=== PATIENT | female | born 1965 | race American Indian/Alaskan Native ===

== ENCOUNTER 2018-01-29 14:01 | Inpatient (IN) | payer MEDICAID, OTHER ==
--- NOTE | 2018-01-29 14:15 | ED PDOC ---
Arrival/HPI - General Chief Complaint: Lower Extremity Problem/Injury Time Seen by Provider: 01/29/18 14:09 Past Medical History - Infectious Disease Hx of Infectious Diseases: None - Tetanus Immunization Tetanus Immunization: Unknown - Past Medical History Past Medical History: No Previous - Cardiac Hx Cardiac Disorders: No - Pulmonary Hx Respiratory Disorders: Yes Other/Comment: Sarcodosis - Neurological Hx Neurological Disorder: No - HEENT Hx HEENT Disorder: No - Renal Hx Renal Disorder: No - Endocrine/Metabolic Hx Endocrine Disorders: No - Hematological/Oncological Hx Blood Disorders: No - Integumentary Hx Dermatological Disorder: No - Musculoskeletal/Rheumatological Hx Musculoskeletal Disorders: No - Gastrointestinal Hx Gastrointestinal Disorders: No - Genitourinary/Gynecological Hx Genitourinary Disorders: No - Psychiatric Hx Psychophysiologic Disorder: No Hx Substance Use: No - Surgical History Hx Section: Yes Other/Comment: DRAINAGE OF PLEURAL FLUID - Anesthesia Hx Anesthesia: Yes Hx Anesthesia Reactions: No Hx Malignant Hyperthermia: No - Suicidal Assessment Feels Threatened In Home Enviroment: No Family/Social History Smoking Status: Current Some Days Smoker Hx Alcohol Use: No Hx Substance Use: No Hx Substance Use Treatment: No Allergies/Home Meds Allergies/Adverse Reactions: Allergies No Known Allergies Allergy (Verified 01/29/18 14:02) Home Medications: Home Meds Medication Instructions Recorded Confirmed No Known Home Med 01/29/18 01/29/18 Physical Exam Vital Signs Temp Pulse Resp BP Pulse Ox 01/29/18 14:03 98.1 F 86 21 160/100 H 90 L Disposition/Present on Arrival - Present on Arrival History of DVT/PE: No History of Uncontrolled Diabetes: No Urinary Catheter: No History of Decub. Ulcer: No History Surgical Site Infection Following: None - Disposition
[2018-01-29] MEDS ORDERED: Albuterol-Ipratrop 3 mg / 0.5 (3 ml) UD IH STA ×3 (15:00→16:07)
--- NOTE | 2018-01-29 15:03 | ED PDOC ---
Arrival/HPI - General Chief Complaint: Lower Extremity Problem/Injury Time Seen by Provider: 01/29/18 14:09 - History of Present Illness Narrative History of Present Illness (Text): 52 year old female with a past medical history of sarcoidosis and hypertension presents with a 3 day history of right lower extremity edema starting from the thigh and shortness of breath exacerbated with walking up and down the stairs. She also reports wheezing for the past 3 days and a dry cough that started today. She reports having this SOB in the past before and given treatments for the SOB. She reports no pain, redness, or warmth from either bilateral lower extremity. She reports having welts which resolved spontaneously. She denies fever, headache, dizziness, chest pain, heart palpitations, abdominal pain, nausea, vomiting, constipation, diarrhea, dysuria, hematuria, and numbness /tingling. (Sean Zhu) Past Medical History - Provider Review Nursing Documentation Reviewed: Yes - Infectious Disease Hx of Infectious Diseases: None - Tetanus Immunization Tetanus Immunization: Unknown - Past Medical History Past Medical History: No Previous - Cardiac Hx Cardiac Disorders: No - Pulmonary Hx Respiratory Disorders: Yes Other/Comment: Sarcodosis - Neurological Hx Neurological Disorder: No - HEENT Hx HEENT Disorder: No - Renal Hx Renal Disorder: No - Endocrine/Metabolic Hx Endocrine Disorders: No - Hematological/Oncological Hx Blood Disorders: No - Integumentary Hx Dermatological Disorder: No - Musculoskeletal/Rheumatological Hx Musculoskeletal Disorders: No - Gastrointestinal Hx Gastrointestinal Disorders: No - Genitourinary/Gynecological Hx Genitourinary Disorders: No - Psychiatric Hx Psychophysiologic Disorder: No Hx Substance Use: No - Surgical History Hx Section: Yes Other/Comment: DRAINAGE OF PLEURAL FLUID - Anesthesia Hx Anesthesia: Yes Hx Anesthesia Reactions: No Hx Malignant Hyperthermia: No - Suicidal Assessment Feels Threatened In Home Enviroment: No Family/Social History - Physician Review Nursing Documentation Reviewed: Yes Family/Social History: No Known Family HX Smoking Status: Current Some Days Smoker Hx Alcohol Use: No Hx Substance Use: No Hx Substance Use Treatment: No Allergies/Home Meds Allergies/Adverse Reactions: Allergies No Known Allergies Allergy (Verified 01/29/18 14:02) Home Medications: Home Meds Medication Instructions Recorded Confirmed No Known Home Med 01/29/18 01/29/18 Review of Systems - Physician Review All systems were reviewed & negative as marked: Yes - Review of Systems Constitutional: Normal Eyes: Normal ENT: Normal Respiratory: SOB, Cough, Wheezing Cardiovascular: Normal. absent: Chest Pain, Palpitations Gastrointestinal: Normal. absent: Abdominal Pain, Constipation, Diarrhea, Nausea, Vomiting Genitourinary Female: Normal. absent: Dysuria, Frequency, Hematuria Musculoskeletal: Joint Swelling (swelling of right lower extremity) Skin: Normal, Rash (on forehead), Pruritis (minimal pruritis on for welts). absent: Skin Lesions, Laceration, Abscess Neurological: Normal Endocrine: Normal Physical Exam Vital Signs Reviewed: Yes Temperature: Afebrile Blood Pressure: Hypertensive Pulse: Regular Respiratory Rate: Tachypneic Appearance: Positive for: Well-Appearing Pain Distress: None Mental Status: Positive for: Alert and Oriented X 3 - Systems Exam Head: Present: Atraumatic, Normocephalic Pupils: Present: PERRL Extroacular Muscles: Present: EOMI Nose (External): Present: Atraumatic Neck: Present: Normal Range of Motion Respiratory/Chest: Present: Wheezes (diffuse) Cardiovascular: Present: Murmurs (audible splitting heart between ) Abdomen: Present: Normal Bowel Sounds. No: Tenderness, Distention Upper Extremity: Present: Normal Inspection, Normal ROM, NORMAL PULSES Lower Extremity: Present: Edema (+2 edema), NORMAL PULSES (pulses palpated although +2 edema in RLE), Normal ROM (generally ROM is intact even though RLE swelling is present), Capillary Refill < 2 s. No: CALF TENDERNESS, Erythema, Deformity Neurological: Present: GCS=15, CN II-XII Intact, Speech Normal, Motor Func Grossly Intact Skin: Present: Warm, Dry, Normal Color Psychiatric: Present: Alert, Oriented x 3, Normal Insight, Normal Concentration Vital Signs Temp Pulse Resp BP Pulse Ox 01/29/18 17:50 82 20 151/95 H 96 01/29/18 17:48 151/95 H 01/29/18 16:51 74 18 150/105 H 95 01/29/18 14:32 78 20 146/86 96 01/29/18 14:17 22 88 L 01/29/18 14:03 98.1 F 86 21 160/100 H 90 L Medical Decision Making ED Course and Treatment: Impression: 52 year old female with a past medical history of sarcoidosis and hypertension presents with a 3 day history of right lower extremity edema starting from the thigh and shortness of breath exacerbated with walking up and down the stairs. Assessment: Most critical differential is pulmonary embolism. Rule out congestive heart failure, pulmonary fibrosis, DVT, pneumonia, thrombophlebitis, chronic venous insufficiency, nephrotic syndrome Plan: CBC, CMP to evaluate for nephrotic syndrome. Troponins and EKG to rule out PA and arrhythmias. BNP to evaluate for heart failure. Chest X ray to rule out pneumonia, pulmonary fibrosis, CHF. CT angiography ordered due to Wells criteria score was 6. Bilateral venous lower extremity ultrasound to rule out DVT. 01/29/18 16:09 CBC, CMP, Mg and UA were unremarkable other than for Magnesium is 1.4. Patient' s magnesium will be repleted with Magnesium 400 mg. ALP is 150, bilirubin is 3.3 , and BNP is 2340. Ultrasound of bilateral lower extremities is negative for DVT. 01/29/18 16:33 Urine RBCs are 1-3, Urine WBCs are 5-10. 01/29/18 16:45 CXR: Mild pulmonary venous congestion. No focal consolidation. There is moderate cardiomegaly and prominent central vasculature. EKG: sinus tachycardia with second degree AV block type I. Rightward axis. Right ventricular conduction delay. Biphasic T waves in V2 and V3. This suggest right heart strain. 01/29/18 17:45 Chest CTA: 1. No CT evidence for acute pulmonary embolism. 2. Interval worsening of mediastinal, hilar lymphadenopathy and right paravertebral soft tissue which also likely represents lymph nodes enlargement. The differential considerations include lymphoma, metastasis and sarcoidosis. 3. Moderate cardiomegaly, large right pleural effusion, trace pericardial effusion and presumable mild alveolar pulmonary edema. Lasix 40 mg will be administered to diurese patient. Due to pleural effusion/ pericardial effusion, we will admit patient to the hospital for further evaluation and treatment. (Sean Zhu) 01/29/18 17:25 CT Chest: Creator : Chanel Wise MD COMPARISON: CT chest without contrast from 11/27/2014 FINDINGS: PULMONARY ARTERIES:There are no filling defects in the pulmonary arteries to suggest embolism. AORTA: No acute findings. No thoracic aortic aneurysm. LUNGS: There is patchy ground-glass attenuation in the lungs. There are scattered subpleural and parenchymal nodules in the right lung. The largest in the right lower lobe measures 10 mm. There is multifocal atelectasis/ scaring in the right middle lobe, lingula and both lower lobes. PLEURAL SPACES: Large right pleural effusion. No pneumothorax. No left pleural effusion. HEART: There is moderate cardiomegaly and trace pericardial effusion. LYMPH NODES: There is bulky mediastinal lymphadenopathy, the largest prevascular lymph node measures 2 point 9 cm in short axis. There is also extensive right paravertebral soft tissue which likely also represent enlarged lymph nodes. There is also bilateral hilar lymphadenopathy. These findings are worse since the prior examination. BONES, CHEST WALL:Within normal limits for the patient's age. No fracture or destructive lesion OTHER FINDINGS: There is diffuse anasarca. IMPRESSION: 1. No CT evidence for acute pulmonary embolism. 2. Interval worsening of mediastinal, hilar lymphadenopathy and right paravertebral soft tissue which also likely represents lymph nodes enlargement. The differential considerations include lymphoma, metastasis and sarcoidosis. 3. Moderate cardiomegaly, large right pleural effusion, trace pericardial effusion and presumable mild alveolar pulmonary edema. 01/29/18 18:[address] results was reviewed with patient. JONE Sono results were negative for DVT. Patient improved with one dose improved with Solumedrol IVP x1 dose and Duoneb x 2, though oxygen sat 90% on RA. Considering her Sarcoidosis and large pleural effusion and trace pericardial effusion it's important to admit patiaent for further evaluation and treatment. Case was discussed with Dr. Gutierrez who admits Dr. Derrick Emery's patients. He agreed to place patient into Telemetry for Pleural Effusion, Pericardial Effusion, r/o CHF, Sarcoidosis, Right Leg Swelling. (Pratik Gross) - Lab Interpretations Lab Results: 01/29/18 14:50 01/29/18 14:50 Lab Results 01/29/18 14:50: Magnesium 1.4 L 01/29/18 14:50: Urine Color Dark yellow, Urine Appearance Slight-cloudy, Urine pH 6.5, Ur Specific [place] 1.020, Urine Protein 100 H, Urine Glucose (UA) Negative, Urine Ketones Negative, Urine Blood Small H, Urine Nitrate Negative, Urine Bilirubin Negative, Urine Urobilinogen 4.0 H, Ur Leukocyte Esterase Trace H, Urine RBC 1 - 3, Urine WBC 5 - 10, Ur Epithelial Cells 3 - 4, Urine Bacteria Few 01/29/18 14:50: Sodium 142, Potassium 4.1, Chloride 101, Carbon Dioxide 27, Anion Gap 18, BUN 14, Creatinine 1.2, Est GFR ( Amer) 57, Est GFR (Non- Af Amer) 47, Random Glucose 123 H, Calcium 9.0, Total Bilirubin 3.3 H, AST 38 H , ALT 31, Alkaline Phosphatase 150 H, Lactate Dehydrogenase 664, Total Creatine Kinase 106, Troponin I < 0.01, NT-Pro-B Natriuret Pep 2340 H, Total Protein 7.7 , Albumin 4.1, Globulin 3.6, Albumin/Globulin Ratio 1.1 01/29/18 14:50: WBC 5.3, RBC 5.17, Hgb 14.1, Hct 43.1, MCV 83.4, MCH 27.3, MCHC 32.7, RDW 16.9 H, Plt Count 164, MPV 11.1 H, Gran % 64.0, Lymph % (Auto) 19.4 L , [place] % (Auto) 13.0 H, Eos % (Auto) 3.4, Baso % (Auto) 0.2, Gran # 3.39, Lymph # (Auto) 1.0 L, [place] # (Auto) 0.7 H, Eos # (Auto) 0.2, Baso # (Auto) 0.01 - RAD Interpretation Radiology Orders: 01/29/18 14:55 CHEST PORTABLE [RAD] Stat 01/29/18 14:56 ANGIO CHEST PE PROTOCOL [CT] Stat 01/29/18 14:57 DUPLEX LOWER EXTRM VEIN BILAT [US] Stat - Medication Orders Current Medication Orders: Discontinued Medications Albuterol/Ipratropium (Duoneb 3 Mg/0.5 Mg (3 Ml) Ud) 3 ml IH STAT STA Stop: 01/29/18 15:01 Last Admin: 01/29/18 15:11 Dose: 3 ml Albuterol/Ipratropium (Duoneb 3 Mg/0.5 Mg (3 Ml) Ud) 3 ml IH STAT STA Stop: 01/29/18 16:03 Last Admin: 01/29/18 16:50 Dose: 3 ml Albuterol/Ipratropium (Duoneb 3 Mg/0.5 Mg (3 Ml) Ud) 3 ml IH STAT STA Stop: 01/29/18 16:08 Last Admin: 01/29/18 17:28 Dose: Furosemide (Lasix) 40 mg IVP STAT STA Stop: 01/29/18 17:44 Last Admin: 01/29/18 17:48 Dose: 40 mg MAR Blood Pressure Document 01/29/18 17:48 GMD (Rec: 01/29/18 17:50 [email or web address] Blood Pressure Blood Pressure (100/60-150/90) 151/95 IVP Administration Document 01/29/18 17:48 GMD (Rec: 01/29/18 17:50 [email or web address] Charges for Administration # of IVP Administrations 1 Magnesium Oxide (Mag-Ox) 400 mg PO STAT STA Stop: 01/29/18 15:56 Last Admin: 01/29/18 17:03 Dose: 400 mg Methylprednisolone (Solu-Medrol) 125 mg IVP STAT STA Stop: 01/29/18 15:02 Last Admin: 01/29/18 15:10 Dose: 125 mg IVP Administration Document 01/29/18 15:10 GMD (Rec: 01/29/18 15:10 [email or web address] Charges for Administration # of IVP Administrations 1 Methylprednisolone (Solu-Medrol) 125 mg IVP STAT STA Stop: 01/29/18 15:38 Last Admin: 01/29/18 16:49 Dose: - PA / CMO & PRESIDENT / Resident Statement / has reviewed & agrees with the documentation as recorded. / has examined the patient and agrees with the treatment plan. Disposition/Present on Arrival - Present on Arrival Any Indicators Present on Arrival: No History of DVT/PE: No History of Uncontrolled Diabetes: No Urinary Catheter: No History of Decub. Ulcer: No History Surgical Site Infection Following: None - Disposition Have Diagnosis and Disposition been Completed?: Yes Disposition Time: 17:48 Patient Plan: Admission - Disposition Diagnosis: Pleural effusion, Pericardial effusion, Right leg swelling, Congestive heart failure, Sarcoidosis Disposition: HOSPITALIZED Patient Problems: Current Active Problems Problem Status Onset Pleural effusion Acute Condition: STABLE
[2018-01-29 15:27] LABS: BASO # 0.01 K/mm3 (0.0-2.0); BASO % 0.2 % (0.0-3.0); EOS # 0.2 (0.0-0.7); EOS % 3.4 % (1.5-5.0); GRAN # 3.39 (1.4-6.5); HEMOGLOBIN 14.1 g/dL (12.0-16.0); LYMPH % 19.4 % (22.0-35.0); MEAN CELL VOLUME 83.4 fl (80.0-105.0); MEAN CORPUSCULAR HEMOGLOBIN 27.3 pg (25.0-35.0); MEAN CORPUSCULAR HGB CONC 32.7 g/dl (31.0-37.0); MEAN PLATELET VOLUME 11.1 fl (7.0-11.0); MONO # 0.7 (0.1-0.6); RBC 5.17 10^6/uL (3.5-6.1); RED CELL DISTRIBUTION WIDTH 16.9 % (11.5-14.5); WHITE BLOOD COUNT 5.3 10^3/ul (4.5-11.0)
[2018-01-29 15:30] LABS: PH,URINE 6.5 (4.7-8.0); URINE BILIRUBIN NEGATIVE (NEGATIVE); URINE BLOOD SMALL (NEGATIVE); URINE GLUCOSE (UA) NEGATIVE (NEGATIVE); URINE LEUKOCYTE ESTERASE TRACE Leu/uL (NEGATIVE); URINE PROTEIN 100 mg/dL (<30 mg/dL)
[2018-01-29 15:31] LABS: URINE APPEARANCE SLIGHT-CLOUDY (CLEAR); URINE COLOR DARK YELLOW (YELLOW)
--- NOTE | 2018-01-29 15:33 | RAD ---
Date of service: 01/29/2018 HISTORY: r/o infiltrate COMPARISON: 11/27/2014 FINDINGS: LUNGS: The lungs are well inflated. Mild pulmonary venous congestion. No focal consolidation PLEURA: There is left pleural thickening, no pneumothorax apparent. CARDIOVASCULAR: There is moderate cardiomegaly and prominent central vasculature. OSSEOUS STRUCTURES: No significant abnormalities. VISUALIZED UPPER ABDOMEN: Normal. OTHER FINDINGS: None. IMPRESSION: No active pulmonary disease.
[2018-01-29 15:36] LABS: ALB/GLOB RATIO 1.1 (1.1-1.8); ALBUMIN 4.1 g/dL (3.0-4.8); ALT/SGPT 31 U/L (7-56); AST/SGOT 38 U/L (14-36); BLOOD UREA NITROGEN 14 mg/dL (7-21); GFR AFRICAN-AMERICAN 57; GFR NON-AFRICAN AMERICAN 47
[2018-01-29] MEDS ORDERED: Iodixanol 320 MG/ML 100 ML BOTTLE IV ONE ×2 (15:40→16:35)
[2018-01-29 15:54] LABS: B-TYPE NATRIURETIC PEPTIDE 2340 pg/mL (0-450); TROPONIN I < 0.01 ng/mL
[2018-01-29] MEDS ORDERED: Magnesium Oxide 400 mg Tab UD PO STA (15:55)
[2018-01-29 16:22] LABS: URINE BACTERIA FEW (NEG)
--- NOTE | 2018-01-29 17:23 | CT ---
Date of service: 01/29/2018 PROCEDURE: CT Chest with contrast (Pulmonary Angiogram) HISTORY: wells criteria=6 COMPARISON: CT chest without contrast from 11/27/2014 TECHNIQUE: Axial computed tomography images were obtained of the chest in the pulmonary arterial phase of enhancement. Coronal and sagittal reformatted images were created and reviewed. Intravenous contrast dose: 150 mL Visipaque 320 Radiation dose: Total exam DLP = 541.62 mGy-cm. This CT exam was performed using one or more of the following dose reduction techniques: Automated exposure control, adjustment of the mA and/or kV according to patient size, and/or use of iterative reconstruction technique. FINDINGS: PULMONARY ARTERIES: There are no filling defects in the pulmonary arteries to suggest embolism. AORTA: No acute findings. No thoracic aortic aneurysm. LUNGS: There is patchy ground-glass attenuation in the lungs. There are scattered subpleural and parenchymal nodules in the right lung. The largest in the right lower lobe measures 10 mm. There is multifocal atelectasis/ scaring in the right middle lobe, lingula and both lower lobes. PLEURAL SPACES: Large right pleural effusion. No pneumothorax. No left pleural effusion. HEART: There is moderate cardiomegaly and trace pericardial effusion. LYMPH NODES: There is bulky mediastinal lymphadenopathy, the largest prevascular lymph node measures 2 point 9 cm in short axis. There is also extensive right paravertebral soft tissue which likely also represent enlarged lymph nodes. There is also bilateral hilar lymphadenopathy. These findings are worse since the prior examination. BONES, CHEST WALL: Within normal limits for the patient's age. No fracture or destructive lesion OTHER FINDINGS: There is diffuse anasarca. IMPRESSION: 1. No CT evidence for acute pulmonary embolism. 2. Interval worsening of mediastinal, hilar lymphadenopathy and right paravertebral soft tissue which also likely represents lymph nodes enlargement. The differential considerations include lymphoma, metastasis and sarcoidosis. 3. Moderate cardiomegaly, large right pleural effusion, trace pericardial effusion and presumable mild alveolar pulmonary edema.
[2018-01-29] MEDS ORDERED: Albuterol-Ipratrop 3 mg / 0.5 (3 ml) UD IH PRN (19:29)
--- NOTE | 2018-01-29 19:32 | CP.PCM.HP ---
<Willis Sal - Last Filed: 01/29/18 20:27> History of Present Illness - History of Present Illness History of Present Illness: 52 y o female PMhx sarcoidosis presents to the ED complaining of a 3 day hx of R lower extremity edema from thigh, shortness of breath on exertion while going up and down stairs at home, and wheezing x 3 days. Pt states that her leg swelling started at home, states that she noticed the swelling while sitting on the side of her bed. Denies pain in affected area, redness, or warmth. Pt also c /o dry cough that started today. Pt also admits to "welts" that were present on the affected leg 3 days ago that went away spontaneously. Pt states she was diagnosed with sarcoidosis 3 years ago after being admitted to [facility] for L sided pleural effusion, which was drained during her admission. Denies headache, dizziness/lightheadedness, fever, chills, chest pain, n/v/d/c, urinary complaints, or other symptoms. Pt states she is usually able to ambulate at home at baseline without any issues. PMD: Dr. Fabi Melton: Dr. García PMhx: Sarcoidosis (dx 3 y ago), L sided pleural effusion 3 y ago PSurgHx: Surgical drainage of L sided pleural effusion, C/s 20 y ago Allergies: NKDA Meds: Pt states she takes a blue colored inhaler at home for sarcoidosis, unsure of medication name Fam hx: Parents and siblings alive and well - no pertinent hx Soc hx: Former smoker quit 1 month ago, denies alcohol or drug use In ED, pt received duonebs, Solu-medrol, lasix, and Magnesium oxide. Mg was 1.4 on admission, pt received Mag oxide 400 mg x1. ALP 150, Bili 3.3, BNP 2340. U/a demonstrated RBCs 1-3, WBCs 5-10, urine protein 100. CXR revealed mild pulmonary venous congestion and no focal consolidation. CT chest demonstrated no evidence of pulmonary embolism; interval worsening of mediastinal, hilar lymphadenopathy, and R paravertebral soft tissue which also likely represents lymph node enlargement (differential - lymphoma, metastasis, sarcoidosis), moderate cardiomegaly, large R pleural effusion, trace pericardial effusion, presumable mild alveolar pulmonary edema. Lower extremity doppler b/l was negative for DVT. EKG in ED demonstrated possible 2nd degree AV block. Present on Admission - Present on Admission Any Indicators Present on Admission: No Review of Systems - Constitutional Constitutional: Fatigue. absent: As Per HPI, Anorexia, Chills, Daytime Sleepiness, Excessive Sweating, Fever, Frequent Falls, Headache, Increased Appetite, Lethargy, Malaise, Night Sweats, Snoring, Sleep Apnea, Weight Gain, Weight Loss, Weakness, Other - Cardiovascular Cardiovascular: Dyspnea, Dyspnea on Exertion, Leg Edema, Pedal Edema. absent: As Per HPI, Acrocyanosis, Chest Pain, Chest Pain at Rest, Chest Pain with Activity, Claudication, Diaphoresis, Edema, Irregular Heart Rhythm, Pain Radiating to Arm/Neck/Jaw, Leg Ulcers, Lightheadedness, Orthopnea, Palpitations , Paroxysmal Nocturnal Dyspnea, Radiating Pain, Rapid Heart Rate, Slow Heart Rate, Syncope, Other - Respiratory Respiratory: Cough, Dyspnea, Dyspnea on Exertion, Wheezing. absent: As Per HPI , Hemoptysis, Snoring, Stridor, Pain on Inspiration, Chest Congestion, Excessive Mucous Production, Change in Mucous Color, Pain with Coughing, Other - Gastrointestinal Gastrointestinal: absent: As Per HPI, Abdominal Pain, Belching, Bloating, Change in Bowel Habits, Change in Stool Character, Coffee Ground Emesis, Constipation, Cramping, Diarrhea, Dyspepsia, Dysphagia, Early Satiety, Excessive Flatus, Fecal Incontinence, Heartburn, Hematemesis, Hematochezia, Loose Stools, Melena, Nausea, Odynophagia, Temesmus, Vomiting, Other Past Patient History - Infectious Disease Hx of Infectious Diseases: None - Tetanus Immunizations Tetanus Immunization: Unknown - Past Social History Smoking Status: Current Some Days Smoker - CARDIAC Hx Cardiac Disorders: No - PULMONARY Hx Respiratory Disorders: Yes Other/Comment: Sarcodosis - NEUROLOGICAL Hx Neurological Disorder: No - HEENT Hx HEENT Problems: No - RENAL Hx Chronic Kidney Disease: No - ENDOCRINE/METABOLIC Hx Endocrine Disorders: No - HEMATOLOGICAL/ONCOLOGICAL Hx Blood Disorders: No - INTEGUMENTARY Hx Dermatological Problems: No - MUSCULOSKELETAL/RHEUMATOLOGICAL Hx Musculoskeletal Disorders: No - GASTROINTESTINAL Hx Gastrointestinal Disorders: No - GENITOURINARY/GYNECOLOGICAL Hx Genitourinary Disorders: No - PSYCHIATRIC Hx Psychophysiologic Disorder: No Hx Substance Use: No - SURGICAL HISTORY Hx Section: Yes Other/Comment: DRAINAGE OF PLEURAL FLUID - ANESTHESIA Hx Anesthesia: Yes Hx Anesthesia Reactions: No Hx Malignant Hyperthermia: No Meds Allergies/Adverse Reactions: Allergies Allergy/AdvReac Type Severity Reaction Status Date / Time No Known Allergies Allergy Verified 01/29/18 18:52 Physical Exam - Constitutional Appears: Non-toxic, No Acute Distress - Head Exam Head Exam: ATRAUMATIC, NORMAL INSPECTION, NORMOCEPHALIC - Eye Exam Eye Exam: EOMI, Normal appearance, PERRL - ENT Exam ENT Exam: Mucous Membranes Moist, Normal Oropharynx - Respiratory Exam Respiratory Exam: Clear to Auscultation Bilateral, NORMAL BREATHING PATTERN - Cardiovascular Exam Cardiovascular Exam: REGULAR RHYTHM, +S1, +S2 - GI/Abdominal Exam GI & Abdominal Exam: Normal Bowel Sounds, Soft - Extremities Exam Extremities exam: Positive for: normal capillary refill, pedal edema, pedal pulses present Additional comments: R LE swelling noted, 2+ non-pitting edema - Back Exam Back exam: FULL ROM, NORMAL INSPECTION - Neurological Exam Neurological exam: Alert, CN II-XII Intact, Normal Gait, Oriented x3, Reflexes Normal - Psychiatric Exam Psychiatric exam: Normal Affect, Normal Mood - Skin Skin Exam: Dry, Intact, Normal Color, Warm Results - Vital Signs Recent Vital Signs: Last Vital Signs Temp 98.1 F 01/29/18 14:03 Pulse 82 01/29/18 17:50 Resp 20 01/29/18 17:50 BP 151/95 H 01/29/18 17:50 Pulse Ox 96 01/29/18 17:50 - Labs Result Diagrams: 01/29/18 14:50 01/29/18 14:50 Assessment & Plan - Assessment and Plan (Free Text) Assessment: 52 y o female PMhx sarcoidosis (hx L pleural effusion 3 y ago s/p surgical drainage), presents with R lower extremity edema and worsening shortness of breath on exertion. Found on CT chest to have R sided pleural effusion and worsening of mediastinal and hilar lymphadenopathy. Plan: R-sided pleural effusion -Found on Chest CT -Pt has hx L sided pleural effusion drained 3 y ago at [facility] -Pt saturating well, speaking in full sentences, no respiratory distress -Normal WBC, pt not showing signs of infection at this time -Continue to trend labs -Consider pulm, IR consults -Continue to monitor vitals Worsening shortness of breath -Likely 2/2 to R-sided pleural effusion, sarcoidosis -Duonebs q 4 h PRN -Solu-medrol 40 mg q 12 h IVP Elevated BNP -2/2 R lower extremity swelling 2/2 pleural effusion vs. sarcoidosis -Cardio consulted, recs appreciated -EKG demonstrated possible 2nd degree AV block, chronic change -Echo pending -CT chest demonstrated cardiomegaly, trace pericardial effusion -Strict I's/O's, daily weights -40 mg IV lasix daily Hx sarcoidosis Pt on inhaler at home, does not know name of it, needs pharmacy verification Pt seen, examined with, and plan discussed with Dr. Gutierrez, attending Willis Sal DO PGY-1, [employer] Pager #[phone] <Jose David Gutierrez - Last Filed: 01/30/18 07:15> Results - Vital Signs Recent Vital Signs: Last Vital Signs Temp 98.0 F 01/30/18 05:50 Pulse 60 01/30/18 05:51 Resp 20 01/30/18 05:50 BP 141/95 H 01/30/18 05:50 Pulse Ox 97 01/30/18 05:50 - Labs Result Diagrams: 01/30/18 06:00 01/29/18 14:50 Labs: Laboratory Results - last 24 hr 01/30/18 06:00 WBC 5.0 RBC 4.86 Hgb 13.3 Hct 40.8 MCV 84.0 MCH 27.4 MCHC 32.6 RDW 16.8 H Plt Count 164 MPV 10.9 Gran % 81.5 H Lymph % (Auto) 12.9 L Cloud % (Auto) 5.6 Eos % (Auto) 0.0 L Baso % (Auto) 0.0 Gran # 4.09 Lymph # (Auto) 0.7 L Cloud # (Auto) 0.3 Eos # (Auto) 0.0 Baso # (Auto) 0.00 Attending/Attestation - Attestation I have personally seen and examined this patient.: Yes I have fully participated in the care of the patient.: Yes I have reviewed all pertinent clinical information: Yes Notes (Text): 01/29/18 52 year old female with past medical history of sarcoidosis who presented with shortness of breath and right lower extremity edema. CT chest showed large right pleural effusion and worsening of mediastinal and hilar lymphadenopathy. PNBP was also elevated. Will request cardiology and pulmonary evaluation. Continue with iv lasix, steroids and duonebs. Echocardiogram ordered. Jose David Gutierrez MD Hospitalist.
[2018-01-29] MEDS ORDERED: Magnesium 2 gm/50 ml NS 2 GM/50 ML BAG IVPB ONE (19:57)
[2018-01-29 20:11] VITALS: BMI 34.7
[2018-01-29] MEDS ORDERED: Pneumococcal 23-Valent Vaccine IM ONE (20:11)
--- NOTE | 2018-01-29 21:22 | CP.PCM.CON ---
<Familia Simpson - Last Filed: 01/29/18 21:00> History of Present Illness - History of Present Illness History of Present Illness: ICU Consult Note - Addy Simpson, PGY2 CC: Possible 3rd Degree AV Block Pt is a 52 yo F with PMHx of sarcoidosis presents to [facility] due to a 3 day history of RLE edema, dyspnea on exertion, non-productive cough, and wheezing. Patient was subsequently admitted due to right-sided pleural effusion found on imaging and worsening dyspnea 2/2 sarcoidosis vs. pleural effusion vs. possible CHF. On the floor, possible 3rd degree AV block was seen on rhythm strip, in which ICU consult was called. In the ED, PE and DVT were ruled out. EKG showed possible 2nd degree AV block and was consistent with prior EKG with no acute changes. Patient was noted to be short of breath and had RLE edema, but no offered no other complaints. Patient denied CP, n/v/d, abdominal pain, fever, chill, NAVA, or dizziness. PMD: Fabi Pulm: Irais PMHx: Sarcoidosis Surg: Surgical drainage of L pleural effusion, All: NKDA SH: Former smoker, denies EtOH or illicit drug use FHx: Non-contributory Medications: unknown inhaler Review of Systems - Review of Systems All systems: reviewed and no additional remarkable complaints except (12 point ROS reviewed and is negative other than what is stated in HPI.) Past Patient History - Infectious Disease Hx of Infectious Diseases: None - Tetanus Immunizations Tetanus Immunization: Unknown - Past Social History Smoking Status: Current Some Days Smoker - CARDIAC Hx Cardiac Disorders: No - PULMONARY Hx Respiratory Disorders: Yes Other/Comment: Sarcodosis - NEUROLOGICAL Hx Neurological Disorder: No - HEENT Hx HEENT Problems: No - RENAL Hx Chronic Kidney Disease: No - ENDOCRINE/METABOLIC Hx Endocrine Disorders: No - HEMATOLOGICAL/ONCOLOGICAL Hx Blood Disorders: No - INTEGUMENTARY Hx Dermatological Problems: No - MUSCULOSKELETAL/RHEUMATOLOGICAL Hx Musculoskeletal Disorders: No - GASTROINTESTINAL Hx Gastrointestinal Disorders: No - GENITOURINARY/GYNECOLOGICAL Hx Genitourinary Disorders: No - PSYCHIATRIC Hx Psychophysiologic Disorder: No Hx Substance Use: No - SURGICAL HISTORY Hx Section: Yes Other/Comment: DRAINAGE OF PLEURAL FLUID - ANESTHESIA Hx Anesthesia: Yes Hx Anesthesia Reactions: No Hx Malignant Hyperthermia: No Meds Allergies/Adverse Reactions: Allergies Allergy/AdvReac Type Severity Reaction Status Date / Time No Known Allergies Allergy Verified 01/29/18 18:52 - Medications Medications: Current Medications Albuterol/Ipratropium (Duoneb 3 Mg/0.5 Mg (3 Ml) Ud) 3 ml IH [id number] PRN PRN Reason: Shortness of Breath Furosemide (Lasix) 40 mg IVP DAILY CORA Methylprednisolone (Solu-Medrol) 40 mg IVP Q12 CORA Physical Exam - Constitutional Appears: No Acute Distress - Head Exam Head Exam: NORMAL INSPECTION - Eye Exam Eye Exam: Normal appearance - ENT Exam ENT Exam: Normal Exam - Neck Exam Neck exam: Positive for: Normal Inspection - Respiratory Exam Respiratory Exam: Decreased Breath Sounds, Wheezes. absent: Rales, Rhonchi - Cardiovascular Exam Cardiovascular Exam: RRR, +S1, +S2. absent: Diastolic murmur, Gallop, Rubs, Systolic Murmur - GI/Abdominal Exam GI & Abdominal Exam: Soft. absent: Distended, Guarding, Rebound, Tenderness - Extremities Exam Extremities exam: Positive for: pedal edema (RLE 2+). Negative for: normal inspection - Back Exam Back exam: NORMAL INSPECTION - Neurological Exam Neurological exam: Alert, CN II-XII Intact, Oriented x3 - Psychiatric Exam Psychiatric exam: Normal Affect, Normal Mood - Skin Skin Exam: Dry, Intact, Normal Color, Warm Results - Vital Signs Recent Vital Signs: Last Vital Signs Temp 98.1 F 01/29/18 19:54 Pulse 82 01/29/18 19:54 Resp 20 01/29/18 19:54 BP 151/95 H 01/29/18 19:54 Pulse Ox 96 01/29/18 17:50 - Labs Result Diagrams: 01/29/18 14:50 01/29/18 14:50 Assessment & Plan - Assessment and Plan (Free Text) Assessment: 52 yo F with PMH sarcoidosis admitted for pleural effusion and elevated BNP. ICU consult requested due to possible 3rd degree AV block on monitor. Plan: Neuro: - AOx3 - Maintain normothermia CV: - EKG obtained in ED showed possible 2nd degree AV block - Repeat EKG showed possible 3rd degree AV block, more likely 2nd degree AV block; chronic when compared to old EKG - Lasix 40 mg IVP daily - Echo ordered - Cardiology consulted Pulm: - Chest CT negative for PE, interval worsening of mediastinal, hilar lymphadenopathy and right paravertebral soft tissue, moderate cardiomegaly, large right pleural effusion, trace pericardial effusion - CXR showed no active pulmonary disease - Maintain O2 > 92% - Duoneb ordered - Solumedrol 40 mg q12h - Strict I's and O's - Daily weights - Head of bed to 30 degrees GI: - Protonix for GI ppx - Regular diet Nephro: - Maintain euvolemia - Mg repleted - Monitor electrolytes and replete as needed Endo: - Maintain euglycemia Heme: - LE venous duplex ordered Dispo: ICU admission not required at this time. Rhythm abnormalities appear to be chronic and patient is asymptomatic and hemodynamically stable. Continue telemetry monitoring with cardiology follow up in AM. Please reconsult if needed. Patient seen and discussed in detail with Dr. Gutierrez. Addy Simpson, PGY2 <Roel Gutierrez P - Last Filed: 01/30/18 06:43> Meds - Medications Medications: Current Medications Albuterol/Ipratropium (Duoneb 3 Mg/0.5 Mg (3 Ml) Ud) 3 ml IH [id number] PRN PRN Reason: Shortness of Breath Furosemide (Lasix) 40 mg IVP DAILY CORA Methylprednisolone (Solu-Medrol) 40 mg IVP Q12 CORA Pantoprazole Sodium (Protonix Ec Tab) 40 mg PO 0600 [facility]A Last Admin: 01/30/18 05:52 Dose: 40 mg Results - Vital Signs Recent Vital Signs: Last Vital Signs Temp 98.0 F 01/30/18 05:50 Pulse 60 01/30/18 05:51 Resp 20 01/30/18 05:50 BP 141/95 H 01/30/18 05:50 Pulse Ox 97 01/30/18 05:50 - Labs Result Diagrams: 01/29/18 14:50 01/29/18 14:50 Attending/Attestation - Attestation I have personally seen and examined this patient.: Yes I have fully participated in the care of the patient.: Yes I have reviewed all pertinent clinical information: Yes Notes (Text): 01/30/18 06:27 Patient came with symptoms of sob, on cta ground glass appearance notice in multiple lobe, right pl effusion, multiple prominent ln, patient not orthopnic, fio2 requirements only 2 lit nc with h/o biopsy proven sarcoidosis. ICU eval called for suspicion of 3rd degree av block. Upon carefull assessment EKG suspicious for AV disssociation as QRS is regular, p wave interspersed without effect on QRS. QRS is narrow, rate of 70/min. Patient has never been dizzy, light headed or passed out, ekg and rhythm findings were incidental. It seems there is AV dissociation as her internal pace maker which may be faster then SA elsa pacemaker is also located close to AV is generating primary impulse. As mentioned patient is asymptomatic, av block was noticed in 2015 in similar ekg morphology. Will recommend pulm w/u with ? bronch/tap, echo and EP studies.
[2018-01-30] MEDS: Pantoprazole 40 mg EC Tab PO SCH (05:52)
[2018-01-30 06:38] LABS: GRAN # 4.09 (1.4-6.5); GRAN % 81.5 % (50.0-68.0); HEMOGLOBIN 13.3 g/dL (12.0-16.0); LYMPH # 0.7 (1.2-3.4); LYMPH % 12.9 % (22.0-35.0); MEAN CORPUSCULAR HEMOGLOBIN 27.4 pg (25.0-35.0); MEAN CORPUSCULAR HGB CONC 32.6 g/dl (31.0-37.0); MEAN PLATELET VOLUME 10.9 fl (7.0-11.0); MONO # 0.3 (0.1-0.6); MONO % 5.6 % (1.0-6.0); RBC 4.86 10^6/uL (3.5-6.1); RED CELL DISTRIBUTION WIDTH 16.8 % (11.5-14.5)
[2018-01-30 07:15] LABS: ALB/GLOB RATIO 1.1 (1.1-1.8); ALBUMIN 3.8 g/dL (3.0-4.8); ALT/SGPT 35 U/L (7-56); AST/SGOT 30 U/L (14-36); BLOOD UREA NITROGEN 15 mg/dL (7-21); GFR AFRICAN-AMERICAN > 60; GFR NON-AFRICAN AMERICAN 52
--- NOTE | 2018-01-30 08:47 | CP.PCM.PN ---
<Willis Sal - Last Filed: 01/30/18 13:08> Subjective - Date & Time of Evaluation Date of Evaluation: 01/30/18 Time of Evaluation: 07:15 - Subjective Subjective: Willis Sal DO PGY-1, Hide Salter Medicine Progress Note Pt seen and examined at bedside. States shortness of breath has improved this am , and that her R lower extremity is much less swollen than yesterday. Slept well overnight, tolerating PO diet well, denies other acute complaints. No acute events reported overnight. Objective - Vital Signs/Intake and Output Vital Signs (last 24 hours): Temp Pulse Resp BP Pulse Ox 98.0 F 60 20 141/95 H 97 01/30/18 05:50 01/30/18 05:51 01/30/18 05:50 01/30/18 05:50 01/30/18 05:50 Intake and Output: 01/30/18 01/30/18 06:59 18:59 Intake Total 530 Output Total 1600 Balance -1070 - Medications Medications: Current Medications Albuterol/Ipratropium (Duoneb 3 Mg/0.5 Mg (3 Ml) Ud) 3 ml IH [id number] PRN PRN Reason: Shortness of Breath Furosemide (Lasix) 40 mg IVP DAILY CORA Methylprednisolone (Solu-Medrol) 40 mg IVP Q12 CORA Pantoprazole Sodium (Protonix Ec Tab) 40 mg PO 0600 [facility] Last Admin: 01/30/18 05:52 Dose: 40 mg - Labs Labs: 01/30/18 06:00 01/30/18 06:00 - Constitutional Appears: Non-toxic, No Acute Distress - Head Exam Head Exam: ATRAUMATIC, NORMAL INSPECTION, NORMOCEPHALIC - Eye Exam Eye Exam: EOMI, Normal appearance, PERRL - ENT Exam ENT Exam: Mucous Membranes Moist, Normal Oropharynx - Neck Exam Neck Exam: Full ROM, Normal Inspection - Respiratory Exam Respiratory Exam: NORMAL BREATHING PATTERN Additional comments: Decreased breath sounds b/l, more prominent in R lower lobe - Cardiovascular Exam Cardiovascular Exam: REGULAR RHYTHM, +S1, +S2 - GI/Abdominal Exam GI & Abdominal Exam: Soft, Normal Bowel Sounds - Extremities Exam Extremities Exam: Full ROM, Normal Capillary Refill Additional comments: 1+ nonpitting edema in R lower extremity - Back Exam Back Exam: Full ROM, NORMAL INSPECTION - Neurological Exam Neurological Exam: Alert, Awake, CN II-XII Intact, Oriented x3 - Psychiatric Exam Psychiatric exam: Normal Affect, Normal Mood - Skin Skin Exam: Dry, Intact, Normal Color, Warm Assessment and Plan - Assessment and Plan (Free Text) Assessment: 52 y o female PMhx sarcoidosis (hx L pleural effusion 3 y ago s/p surgical drainage), presents with R lower extremity edema and worsening shortness of breath on exertion. Found on CT chest to have R sided pleural effusion and worsening of mediastinal and hilar lymphadenopathy. Plan: R-sided pleural effusion -Found on Chest CT -Pt has hx L sided pleural effusion drained 3 y ago at [facility] -Pt saturating well, speaking in full sentences, no respiratory distress, states her symptoms have improved this am -Normal WBC, pt not showing signs of infection at this time -Continue to trend labs -Will consult pulm, recs appreciated -Continue to monitor vitals -Encourage ambulation Worsening shortness of breath -Likely 2/2 to R-sided pleural effusion, sarcoidosis -Duonebs q 4 h PRN -Solu-medrol 40 mg q 12 h IVP Elevated BNP -2/2 R lower extremity swelling 2/2 pleural effusion vs. sarcoidosis -Cardio consulted, recs appreciated -EKG demonstrated possible 2nd degree AV block, chronic change -Echo done, f/u results -CT chest demonstrated cardiomegaly, trace pericardial effusion -Strict I's/O's, daily weights -40 mg IV lasix daily Hx sarcoidosis Pt on inhaler at home, does not know name of it Will confirm with pt's pharmacy name of home medication Pt seen, examined with, and plan discussed with Dr. Gutierrez, attending. Willis Sal DO PGY-1, Hide Salter Pager #[phone] <Jose David Gutierrez - Last Filed: 01/30/18 16:53> Objective - Vital Signs/Intake and Output Vital Signs (last 24 hours): Temp Pulse Resp BP Pulse Ox 97.8 F 81 20 149/89 97 01/30/18 11:57 01/30/18 11:57 01/30/18 11:57 01/30/18 11:57 01/30/18 05:50 Intake and Output: 01/30/18 01/30/18 06:59 18:59 Intake Total 530 Output Total 1600 Balance -1070 - Medications Medications: Current Medications Albuterol/Ipratropium (Duoneb 3 Mg/0.5 Mg (3 Ml) Ud) 3 ml IH [id number] PRN PRN Reason: Shortness of Breath Furosemide (Lasix) 40 mg IVP DAILY [facility] Last Admin: 01/30/18 09:39 Dose: 40 mg Methylprednisolone (Solu-Medrol) 40 mg IVP Q12 [facility] Last Admin: 01/30/18 09:39 Dose: 40 mg Pantoprazole Sodium (Protonix Ec Tab) 40 mg PO 0600 [facility] Last Admin: 01/30/18 05:52 Dose: 40 mg - Labs Labs: 01/30/18 06:00 01/30/18 06:00 Attending/Attestation - Attestation I have personally seen and examined this patient.: Yes I have fully participated in the care of the patient.: Yes I have reviewed all pertinent clinical information, including history, physical exam and plan: Yes Notes (Text): 01/30/18 16:51 52 year old female with past medical history of sarcoidosis who presented with shortness of breath and right lower extremity edema. CT chest showed large right pleural effusion and worsening of mediastinal and hilar lymphadenopathy. PNBP was also elevated. She was started on iv steroids, iv lasix and duonebs. Today her symptoms including dyspnea and LE swelling have improved. Will taper her steroids. Echocardiogram was done with pending read. Cardiology and pulmonary evaluations were requested. Jose David Gutierrez MD Hospitalist.
--- NOTE | 2018-01-30 09:21 | CARD ---
APPROVED REPORT Date of service: 01/29/2018 EKG Measurement Heart [id number] P61 [id number] <Conclusion> Sinus tachycardia with AV dissociation and Accelerated Junctional rhythm Rightward axis Incomplete right bundle branch block ST & T wave abnormality, consider anterolateral ischemia Prolonged QT Abnormal ECG
--- NOTE | 2018-01-30 09:22 | CARD ---
APPROVED REPORT Date of service: 01/29/2018 EKG Measurement Heart [id number] P60 [id number] <Conclusion> Sinus tachycardia with AV dissociation and Accelerated Junctional rhythm Rightward axis RSR' or QR pattern in V1 suggests right ventricular conduction delay ST & T wave abnormality, consider anterior ischemia Abnormal ECG
[2018-01-30] MEDS ORDERED: MethylPREDNISolone 40 mg Vial IVP SCH (10:00)
--- NOTE | 2018-01-30 10:10 | US ---
HISTORY: Leg pain and swelling. Evaluate for DVT PHYSICIAN(S): Toribio Sam MD. TECHNIQUE: Duplex sonography and color-flow Doppler with graded compression were used to evaluate the deep venous systems of both lower extremities. The exam is somewhat limited by body habitus and edema. FINDINGS: The visualized deep venous systems of both lower extremities are sonographically normal and compressible. Normal wave forms and augmentation are seen. There is no sonographic evidence for deep venous thrombosis in the visualized segments of both lower extremities. IMPRESSION: No sonographic evidence for deep venous thrombosis in the visualized segments of both lower extremities.
--- NOTE | 2018-01-30 17:56 | CARD ---
APPROVED REPORT Date of service: 01/30/2018 EXAM: Two-dimensional and M-mode echocardiogram with Doppler and color Doppler. INDICATION 2D DIMENSIONS Left Atrium (2D)3.4 (1.6-4.0cm)IVSd0.7 (0.7-1.1cm) LVDd4.5 (3.9-5.9cm)PWd0.9 (0.7-1.1cm) LVDs3.5 (2.5-4.0cm)FS (%) 23.4 % LVEF (%)55.0 (>50%) M-Mode DIMENSIONS Aortic Root3.00 (2.2-3.7cm)Aortic Cusp Exc.1.70 (1.5-2.0cm) Aortic Valve AoV Peak Duzjalbs327.0cm/Tiesha Peak GR.12mmHg Mitral Valve MV E Ckratuig618.0cm/sE/A ratio0.0 TDI Lateral E' Peak V6.59cm/sMedial E' Peak V8.33cm/sE/Lateral E'21.9 E/Medial E'17.3 Tricuspid Valve TR Peak [id number]/sRAP [id number] Peak Gr.98mmHg [id number] LEFT VENTRICLE The left ventricle is normal size. There is normal left ventricular wall thickness. The left ventricular ejection fraction is within the normal range. There is a flattened septum RIGHT VENTRICLE The right ventricle is moderately dilated. There is normal right ventricular wall thickness. RV Systolic function is moderately to severely reduced. ATRIA The left atrium size is normal. The right atrium is moderately dilated. AORTIC VALVE The aortic valve is mildly thickened. No aortic regurgitation is present. There is no aortic valvular stenosis. MITRAL VALVE The mitral valve is normal in structure. There is no mitral valve regurgitation noted. There is no mitral valve stenosis. TRICUSPID VALVE The tricuspid valve is normal in structure. There is severe tricuspid regurgitation. There is severe pulmonary hypertension. PULMONIC VALVE There is mild pulmonic valvular regurgitation. GREAT VESSELS The aortic root is normal in size. The IVC is dilated. The IVC collapses <50% with inspiration. PERICARDIAL EFFUSION There is no pericardial effusion. <Conclusion> The left ventricle is normal size. There is normal left ventricular wall thickness. The left ventricular ejection fraction is within the normal range. There is a flattened septum The right ventricle is moderately dilated. RV Systolic function is moderately to severely reduced. There is severe tricuspid regurgitation. There is severe pulmonary hypertension.
[2018-01-30] MEDS: MethylPREDNISolone 40 mg Vial IVP SCH (21:27)
--- NOTE | 2018-01-30 23:15 | CON ---
DATE: 01/30/2018 REASON FOR CONSULTATION: Abnormal EKG. HISTORY OF PRESENT ILLNESS: The patient is a 52 years old female, who was diagnosed with sarcoidosis many years ago, but currently is not taking any medications. The patient has cutaneous manifestation of sarcoids with a rash in the frontal part of her head. The patient presented with right leg pain. The patient is unaware of any history of DVT or pulmonary embolism in the past. The patient did have left thoracotomy many years ago at [facility] for left pleural effusion. The patient is unaware of any prior cardiac history. SOCIAL HISTORY: The patient is a nonsmoker. MEDICATIONS: Albuterol inhaler every 4 hours p.r.n., Lasix 40 mg intravenously daily, Solu-Medrol 40 mg intravenously every 12 hours, Protonix 40 mg p.o. once a day. PHYSICAL EXAMINATION: GENERAL: The patient is a middle-aged female, who does not appear to be in any distress. VITAL SIGNS: Blood pressure 149/89, heart rate 81, temperature 97.8, respiration 20. HEENT: Normocephalic. CHEST: Absent breath sounds over the bases and bilateral rhonchi. HEART: S1 and S2 regular. ABDOMEN: Soft. EXTREMITIES: 1+ right leg edema. LABORATORY DATA: Today's SMA-7 is within normal limits except for glucose of 160. One set of troponin is negative. ProBNP is 2340. Today's hemoglobin, hematocrit, white count and platelet count are within normal limits. Venous Doppler lower extremity done yesterday and has no sonographic evidence of DVT in the visualized segments. Chest CT angio was performed yesterday while the patient was in the emergency room and revealed no evidence of acute pulmonary embolus, interval worsening of the mediastinal hilar lymphadenopathy, and right paravertebral soft tissue which may represent lymph notes. The differential diagnosis include lymphoma, metastasis and sarcoidosis. Moderate cardiomegaly. Large right pleural effusion, trace pericardial effusion, and presumably mild alveolar pulmonary edema. My interpretation of the second EKG, junctional rhythm at a rate of 83, with nonspecific anterior T-wave changes. The initial EKG in the emergency room is consistent with junctional rhythm; however, with anterolateral ischemic T-wave inversion. Prolonged QT interval. ASSESSMENT: 1. Consider pulmonary sarcoidosis. 2. Large right pleural effusion. 3. Junctional rhythm, rule out cardiac sarcoidosis. 4. Anterolateral ischemic T-wave changes. Rule out myocardial infarction. However, those EKG changes may represent rather right ventricular strain pattern. RECOMMENDATIONS: Continue current albuterol, IV Lasix and Solu-Medrol. I would review echocardiographic study performed today, and obtain urine for drug screen. Hang Brown MD
[2018-01-31] MEDS: Pantoprazole 40 mg EC Tab PO SCH (05:58)
[2018-01-31 06:47] LABS: GRAN # 12.44 (1.4-6.5); GRAN % 91.4 % (50.0-68.0); HEMOGLOBIN 12.9 g/dL (12.0-16.0); LYMPH # 0.7 (1.2-3.4); LYMPH % 4.9 % (22.0-35.0); MEAN CELL VOLUME 83.2 fl (80.0-105.0); MEAN CORPUSCULAR HGB CONC 32.5 g/dl (31.0-37.0); MEAN PLATELET VOLUME 10.9 fl (7.0-11.0); MONO # 0.5 (0.1-0.6); MONO % 3.7 % (1.0-6.0); PLATELET COUNT 162 10^3/uL (120.0-450.0); RBC 4.77 10^6/uL (3.5-6.1); RED CELL DISTRIBUTION WIDTH 16.8 % (11.5-14.5); WHITE BLOOD COUNT 13.6 10^3/ul (4.5-11.0)
[2018-01-31 07:18] LABS: ALB/GLOB RATIO 1.2 (1.1-1.8); ALBUMIN 3.9 g/dL (3.0-4.8); ALT/SGPT 33 U/L (7-56); AST/SGOT 26 U/L (14-36); BLOOD UREA NITROGEN 19 mg/dL (7-21); CALCIUM 9.2 mg/dL (8.4-10.5); GFR AFRICAN-AMERICAN > 60; GFR NON-AFRICAN AMERICAN 52
[2018-01-31 08:34] LABS: LYMPHOCYTE 6 % (22.0-35.0); MONOCYTE 5 % (1.0-6.0); NEUTROPHIL 89 % (50.0-70.0)
[2018-01-31] MEDS: MethylPREDNISolone 40 mg Vial IVP SCH ×2 (09:51→22:55)
--- NOTE | 2018-01-31 11:46 | CP.PCM.PN ---
<Willis Sal - Last Filed: 01/31/18 15:27> Subjective - Date & Time of Evaluation Date of Evaluation: 01/31/18 Time of Evaluation: 07:40 - Subjective Subjective: Willis Sal DO PGY-1, Medical Chemist Medicine Progress Note Pt seen and examined at bedside, denies any acute complaints. Reports shortness of breath has improved, also R lower extremity swelling improved. Has been ambulating around room without concerns. No acute events reported overnight. Objective - Vital Signs/Intake and Output Vital Signs (last 24 hours): Temp Pulse Resp BP Pulse Ox 98 F 69 20 115/74 100 01/31/18 06:00 01/31/18 10:00 01/31/18 06:00 01/31/18 09:51 01/31/18 06:00 Intake and Output: 01/31/18 01/31/18 06:59 18:59 Intake Total 640 Balance 640 - Medications Medications: Current Medications Albuterol/Ipratropium (Duoneb 3 Mg/0.5 Mg (3 Ml) Ud) 3 ml IH [id number] PRN PRN Reason: Shortness of Breath Furosemide (Lasix) 40 mg IVP DAILY [facility] Last Admin: 01/31/18 09:51 Dose: 40 mg Methylprednisolone (Solu-Medrol) 30 mg IVP Q12 [facility] Last Admin: 01/31/18 09:51 Dose: 30 mg Pantoprazole Sodium (Protonix Ec Tab) 40 mg PO 0600 [facility] Last Admin: 01/31/18 05:58 Dose: 40 mg - Labs Labs: 01/31/18 06:00 01/31/18 06:00 - Constitutional Appears: Non-toxic, No Acute Distress - Head Exam Head Exam: ATRAUMATIC, NORMAL INSPECTION, NORMOCEPHALIC - Eye Exam Eye Exam: EOMI, Normal appearance, PERRL - ENT Exam ENT Exam: Mucous Membranes Moist, Normal Oropharynx - Neck Exam Neck Exam: Full ROM, Normal Inspection - Respiratory Exam Respiratory Exam: NORMAL BREATHING PATTERN Additional comments: Decreased breath sounds b/l, most prominent in R lower lobe - Cardiovascular Exam Cardiovascular Exam: REGULAR RHYTHM, +S1, +S2 - GI/Abdominal Exam GI & Abdominal Exam: Soft, Normal Bowel Sounds - Extremities Exam Extremities Exam: Full ROM, Normal Capillary Refill, Normal Inspection Additional comments: Improving 1+ nonpitting edema in R lower extremity - Back Exam Back Exam: Full ROM, NORMAL INSPECTION - Neurological Exam Neurological Exam: Alert, Awake, CN II-XII Intact, Normal Gait, Oriented x3 - Psychiatric Exam Psychiatric exam: Normal Affect, Normal Mood - Skin Skin Exam: Dry, Intact, Normal Color, Warm Additional comments: Cutaneous granuloma noted on pt's forehead, likely chronic and 2/2 to sarcoidosis Assessment and Plan - Assessment and Plan (Free Text) Assessment: 52 y o female PMhx sarcoidosis (hx L pleural effusion 3 y ago s/p surgical drainage), presents with R lower extremity edema and worsening shortness of breath on exertion. Found on CT chest to have R sided pleural effusion and worsening of mediastinal and hilar lymphadenopathy. Plan: R-sided pleural effusion -Found on Chest CT -Pt has hx L sided pleural effusion drained 3 y ago at [facility] -Pt saturating well, speaking in full sentences, no respiratory distress, states her symptoms are improving -Pt not showing signs of infection at this time; elevated WBC 5=>13.6, possibly 2/2 to steroid administration -Continue to trend labs -Pulm consulted, recs appreciated -Continue to monitor vitals -Encourage ambulation Worsening shortness of breath -Likely 2/2 to R-sided pleural effusion, sarcoidosis -Pt states symptoms are improving -Duonebs q 4 h PRN -Solu-medrol decreased to 30 mg q 12 h IVP Elevated BNP -2/2 R lower extremity swelling 2/2 pleural effusion vs. sarcoidosis -Cardio consulted, recs appreciated -EKG in ED demonstrated possible 2nd degree AV block, chronic change; possible p -wave inversions noted on recent rhythm strip; r/o cardiac sarcoidosis as etiology -Echo 01/30: flattened septum, moderate dilated R ventricle, RV systolic function moderately to severely reduced, severe tricuspid regurgitation, severe pulmonary HTN, EF 55% -CT chest demonstrated cardiomegaly, trace pericardial effusion -Strict I's/O's, daily weights -40 mg IV lasix daily, consider transitioning to PO within next 24 hrs Hx sarcoidosis Pt not on any current home medications Will continue to monitor Pt seen, examined with, and plan discussed with Dr. Emerson, attending. Willis Sal DO PGY-1, Medical Chemist Pager #[phone] <Arun Emerson - Last Filed: 02/01/18 14:20> Objective - Vital Signs/Intake and Output Vital Signs (last 24 hours): Temp Pulse Resp BP Pulse Ox 97.1 F L 54 L 19 141/95 H 97 02/01/18 12:00 02/01/18 12:00 02/01/18 12:00 02/01/18 12:00 02/01/18 06:00 Intake and Output: 02/01/18 02/01/18 06:59 18:59 Intake Total 2400 Balance 2400 - Medications Medications: Current Medications Albuterol/Ipratropium (Duoneb 3 Mg/0.5 Mg (3 Ml) Ud) 3 ml IH [id number] PRN PRN Reason: Shortness of Breath Furosemide (Lasix) 40 mg IVP DAILY [facility] Last Admin: 02/01/18 09:24 Dose: 40 mg Methylprednisolone (Solu-Medrol) 30 mg IVP Q12 [facility] Last Admin: 02/01/18 09:24 Dose: 30 mg Pantoprazole Sodium (Protonix Ec Tab) 40 mg PO 0600 [facility] Last Admin: 02/01/18 05:50 Dose: 40 mg - Labs Labs: 02/01/18 06:15 02/01/18 06:15 Attending/Attestation - Attestation I have personally seen and examined this patient.: Yes I have fully participated in the care of the patient.: Yes I have reviewed all pertinent clinical information, including history, physical exam and plan: Yes Notes (Text): 02/01/18 14:16 Medical record note made by the resident after discussion with my direction and input after the patient was personally seen and examined by me. I have reviewed the chart and agree that the record accurately reflects by personal performance of the history, physical exam, data review, and medical decision-making, in the course for the patient. I have also personally directed the plan of care. 52 yrs old female with right sided heart failure due to severe Pulmonary HTN. Dyspnea and leg swelling is improving.Lasix can be changed to oral. Steroid can be changed to oral.Pulmonary evaluation is pending.Patient will need to follow with Pulmonary Hypertension clinic after discharge. EKG showed junctional rhythm.Patient is asymptomatic.There is no dizziness, lightheadedness or syncope.Patient is ambulatory. Management plan was discussed in detail with patient. Education was provided.
[2018-02-01 01:04] VITALS: O2SAT 97
[2018-02-01] MEDS: Pantoprazole 40 mg EC Tab PO SCH (05:50)
[2018-02-01 06:36] LABS: GRAN # 11.33 (1.4-6.5); GRAN % 87.7 % (50.0-68.0); HEMOGLOBIN 13.6 g/dL (12.0-16.0); LYMPH # 0.8 (1.2-3.4); LYMPH % 5.9 % (22.0-35.0); MEAN CELL VOLUME 83.5 fl (80.0-105.0); MEAN CORPUSCULAR HEMOGLOBIN 27.3 pg (25.0-35.0); MEAN CORPUSCULAR HGB CONC 32.7 g/dl (31.0-37.0); MEAN PLATELET VOLUME 11.2 fl (7.0-11.0); MONO # 0.8 (0.1-0.6); MONO % 6.4 % (1.0-6.0); RBC 4.98 10^6/uL (3.5-6.1); RED CELL DISTRIBUTION WIDTH 16.8 % (11.5-14.5); WHITE BLOOD COUNT 12.9 10^3/ul (4.5-11.0)
[2018-02-01 06:56] LABS: ALB/GLOB RATIO 1.1 (1.1-1.8); ALBUMIN 4.1 g/dL (3.0-4.8)
[2018-02-01] MEDS: MethylPREDNISolone 40 mg Vial IVP SCH (09:24)
[2018-02-01 12:22] VITALS: BP 141/95; RESP 19; TEMP 97.1
--- NOTE | 2018-02-01 15:25 | CP.PCM.CON ---
<MaciejIan - Last Filed: 02/01/18 15:13> History of Present Illness - History of Present Illness History of Present Illness: Ian Wing, PGY1 Pulmonology Consult Note for Dr. Martínez 52 y/o female PMHx of sarcoidosis who presented to the ED complaining of x3 days R lower extremity edema, dyspnea on exertion, and wheezing x 3 days. Denies pain in affected area, redness, or warmth. Pt also c/ o dry cough. Pt states she was diagnosed with sarcoidosis in 2014 after being admitted to [facility] for L sided pleural effusion, which was drained during her admission. In ED, pt received duonebs, Solu-medrol, lasix, and Magnesium oxide. BNP was 2340 and Mg was 1.4 on admission. U/A demonstrated RBCs 1-3, WBCs 5-10, urine protein 100. CXR revealed mild pulmonary venous congestion and no focal consolidation. CT chest demonstrated no evidence of pulmonary embolism; interval worsening of mediastinal, hilar lymphadenopathy, and R paravertebral soft tissue which also likely represents lymph node enlargement (differential - lymphoma, metastasis, sarcoidosis), moderate cardiomegaly, large R pleural effusion, trace pericardial effusion, presumable mild alveolar pulmonary edema. Lower extremity doppler b/l was negative for DVT. EKG in ED demonstrated possible 2nd degree AV block. ECHO showed diastolic dysfunction (EF 55%) with mod-severe reduced RV systolic function with severe tricuspid regurg and severe pulmonary HTN. Patient was examined at bedside, resting comfortably. On interview, patient denied shortness of breath, lightheadedness, dizziness, chest pain, abdominal pain, nausea, vomiting, diarrhea. Patient said that she has been ambulating well on the hospital floor without any shortness of breath. A Full 12 point ROS was conducted and unremarkable except as stated above. PMD: Dr. Fabi Melton: Dr. Braxton PMHx: Sarcoidosis (diagnosed in 2014), L sided pleural effusion (2015) SurgHx: Surgical drainage of L sided pleural effusion, C/S 20 y ago Allergies: NKDA Meds: Pt states she takes a blue colored inhaler at home for sarcoidosis, unsure of medication name FamilyHx: non-contributory SocialHx: Former smoker quit 1 month ago, denies alcohol or drug use Review of Systems - Review of Systems All systems: reviewed and no additional remarkable complaints except (as per HPI.) Past Patient History - Infectious Disease Hx of Infectious Diseases: None - Tetanus Immunizations Tetanus Immunization: Unknown - Past Social History Smoking Status: Former Smoker Alcohol: None Drugs: Denies - CARDIAC Hx Cardiac Disorders: No - PULMONARY Hx Respiratory Disorders: Yes Other/Comment: Sarcodosis - NEUROLOGICAL Hx Neurological Disorder: No - HEENT Hx HEENT Problems: No - RENAL Hx Chronic Kidney Disease: No - ENDOCRINE/METABOLIC Hx Endocrine Disorders: No - HEMATOLOGICAL/ONCOLOGICAL Hx Blood Disorders: No - INTEGUMENTARY Hx Dermatological Problems: No - MUSCULOSKELETAL/RHEUMATOLOGICAL Hx Musculoskeletal Disorders: No - GASTROINTESTINAL Hx Gastrointestinal Disorders: No - GENITOURINARY/GYNECOLOGICAL Hx Genitourinary Disorders: No - PSYCHIATRIC Hx Psychophysiologic Disorder: No Hx Substance Use: No - SURGICAL HISTORY Hx Surgeries: Yes Hx Section: Yes Other/Comment: DRAINAGE OF PLEURAL FLUID - ANESTHESIA Hx Anesthesia: Yes Hx Anesthesia Reactions: No Hx Malignant Hyperthermia: No Meds Allergies/Adverse Reactions: Allergies Allergy/AdvReac Type Severity Reaction Status Date / Time No Known Allergies Allergy Verified 01/29/18 18:52 - Medications Medications: Current Medications Albuterol/Ipratropium (Duoneb 3 Mg/0.5 Mg (3 Ml) Ud) 3 ml IH [id number] PRN PRN Reason: Shortness of Breath Furosemide (Lasix) 40 mg IVP DAILY [facility] Last Admin: 02/01/18 09:24 Dose: 40 mg Methylprednisolone (Solu-Medrol) 30 mg IVP Q12 [facility] Last Admin: 02/01/18 09:24 Dose: 30 mg Pantoprazole Sodium (Protonix Ec Tab) 40 mg PO 0600 [facility] Last Admin: 02/01/18 05:50 Dose: 40 mg Physical Exam - Constitutional Appears: Well - Head Exam Head Exam: ATRAUMATIC, NORMOCEPHALIC - Eye Exam Eye Exam: EOMI, Normal appearance. absent: Conjunctival injection - Neck Exam Neck exam: Positive for: Full Rom - Respiratory Exam Respiratory Exam: Clear to Auscultation Bilateral. absent: Accessory Muscle Use , Chest Wall Tenderness, Decreased Breath Sounds, Rales, Rhonchi, Wheezes, Respiratory Distress, Stridor - Cardiovascular Exam Cardiovascular Exam: Systolic Murmur. absent: Bradycardia, Tachycardia, Gallop Additional comments: Tricuspid Regurgitation (old murmur, since 13 y/o) - GI/Abdominal Exam GI & Abdominal Exam: Normal Bowel Sounds, Soft. absent: Diminished Bowel Sounds , Distended, Guarding, Organomegaly, Rebound, Rigid - Extremities Exam Extremities exam: Positive for: full ROM, normal inspection, pedal pulses present. Negative for: calf tenderness, joint swelling, pedal edema, tenderness - Back Exam Back exam: NORMAL INSPECTION - Neurological Exam Neurological exam: Alert, Oriented x3 - Skin Skin Exam: Dry, Normal Color Additional comments: Indurated skin lesion at forehead related to sarcoidosis. Results - Vital Signs Recent Vital Signs: Last Vital Signs Temp 97.1 F L 02/01/18 12:00 Pulse 54 L 02/01/18 12:00 Resp 19 02/01/18 12:00 BP 141/95 H 02/01/18 12:00 Pulse Ox 97 02/01/18 06:00 - Labs Result Diagrams: 02/01/18 06:15 02/01/18 06:15 Labs: Laboratory Results - last 24 hr 02/01/18 02/01/18 06:15 06:15 WBC 12.9 H RBC 4.98 Hgb 13.6 Hct 41.6 MCV 83.5 MCH 27.3 MCHC 32.7 RDW 16.8 H Plt Count 179 MPV 11.2 H Gran % 87.7 H Lymph % (Auto) 5.9 L [place] % (Auto) 6.4 H Eos % (Auto) 0.0 L Baso % (Auto) 0.0 Gran # 11.33 H Lymph # (Auto) 0.8 L [place] # (Auto) 0.8 H Eos # (Auto) 0.0 Baso # (Auto) 0.00 Sodium 141 Potassium 4.2 Chloride 96 L Carbon Dioxide 33 Anion Gap 17 BUN 29 H Creatinine 1.2 Est GFR ( Amer) 57 Est GFR (Non-Af Amer) 47 Random Glucose 134 H Calcium 9.0 Total Bilirubin 2.1 H AST 35 ALT 39 Alkaline Phosphatase 129 H Total Protein 7.8 Albumin 4.1 Globulin 3.7 Albumin/Globulin Ratio 1.1 Assessment & Plan - Assessment and Plan (Free Text) Assessment: 52 y/o female PMHx of sarcoidosis who presented to the ED complaining of x3 days R lower extremity edema, dyspnea on exertion, and wheezing x 3 days. Denies pain in affected area, redness, or warmth. Pt also c/ o dry cough. Pt states she was diagnosed with sarcoidosis in 2014 after being admitted to [facility] for L sided pleural effusion, which was drained during her admission. During hospital stay, CT chest demonstrated no evidence of pulmonary embolism; interval worsening of mediastinal, hilar lymphadenopathy , and R paravertebral soft tissue which also likely represents lymph node enlargement and large R pleural effusion. ECHO showed diastolic dysfunction (EF 55%) with mod-severe reduced RV systolic function with severe tricuspid regurg and severe pulmonary HTN. Pulmonology was consulted for management. Plan: 1. Multifactorial Pulmonary HTN (Group 2, 5, and possibly Group 3) 2/2 Sarcoidosis - start on prednisone 40 mg taper for 6-9 months - If refractory to steroid taper, patient should consider immunosuppresant therapy - f/u with [facility] Sarcoid Specialist - Needs Right Heart Cath for evaluation of Right Heart Function and Pulmonary HTN - f/u with [employer] Sales Representative (Dr. Braxton) within the next 7-14 days - Refrain from any tobacco use 2. Diastolic Heart Dysfunction 2/2 Sarcoidosis - Diastolic Heart Failure: start on lasix for symptomatic relief - ECHO: diastolic dysfunction (EF 55%) with mod-severe reduced RV systolic function with severe tricuspid regurgitation and severe pulmonary HTN. Case was discussed and reviewed with Attending Physician Dr. Martínez <True Martínez - Last Filed: 02/01/18 16:09> Meds - Medications Medications: Current Medications Albuterol/Ipratropium (Duoneb 3 Mg/0.5 Mg (3 Ml) Ud) 3 ml IH [id number] PRN PRN Reason: Shortness of Breath Furosemide (Lasix) 40 mg IVP DAILY [facility] Last Admin: 02/01/18 09:24 Dose: 40 mg Methylprednisolone (Solu-Medrol) 30 mg IVP Q12 [facility] Last Admin: 02/01/18 09:24 Dose: 30 mg Pantoprazole Sodium (Protonix Ec Tab) 40 mg PO 0600 [facility] Last Admin: 02/01/18 05:50 Dose: 40 mg Results - Vital Signs Recent Vital Signs: Last Vital Signs Temp 97.1 F L 02/01/18 12:00 Pulse 54 L 02/01/18 12:00 Resp 19 02/01/18 12:00 BP 141/95 H 02/01/18 12:00 Pulse Ox 97 02/01/18 06:00 - Labs Result Diagrams: 02/01/18 06:15 02/01/18 06:15 Labs: Laboratory Results - last 24 hr 02/01/18 02/01/18 06:15 06:15 WBC 12.9 H RBC 4.98 Hgb 13.6 Hct 41.6 MCV 83.5 MCH 27.3 MCHC 32.7 RDW 16.8 H Plt Count 179 MPV 11.2 H Gran % 87.7 H Lymph % (Auto) 5.9 L [place] % (Auto) 6.4 H Eos % (Auto) 0.0 L Baso % (Auto) 0.0 Gran # 11.33 H Lymph # (Auto) 0.8 L [place] # (Auto) 0.8 H Eos # (Auto) 0.0 Baso # (Auto) 0.00 Sodium 141 Potassium 4.2 Chloride 96 L Carbon Dioxide 33 Anion Gap 17 BUN 29 H Creatinine 1.2 Est GFR ( Amer) 57 Est GFR (Non-Af Amer) 47 Random Glucose 134 H Calcium 9.0 Total Bilirubin 2.1 H AST 35 ALT 39 Alkaline Phosphatase 129 H Total Protein 7.8 Albumin 4.1 Globulin 3.7 Albumin/Globulin Ratio 1.1 Assessment & Plan - Assessment and Plan (Free Text) Plan: Patient seen and examined on rounds with resident, agree with note with following additions/exceptions: Patient is 52yo AAF, with PMHx of Sarcoid diagnosed lung biopsy 2014, was on steroids on for 6-9 months, tapered off, diastolic CHF, severe pulm htn, presented with SOB and RLE edema. Pt was started on Lasix IV, and Solumedrol IV , with markedly improved symptoms, able to walk around with SEGAL, cough, CP. Pt had echo done which showed severe pulm HTN, and CT chest which showed moderate mediastinal SCOTT. Currently afebrile, BP stable, O2 sat 95% on room air, no major complaints. Sarcoidosis Pulm HTN Diastolic CHF Recommend: - likely has WHO class 2,5 Pulm HTN, reslting from sarcoid and Diastolic CHF - will need prolonged course of PO steroids given radiographic findings and symptoms, 6-9 months, with reevaluation thereafter - Prednisone 40mg daily - FS control - Will need right heart cath as outpatient - Lasix PO - follow up caridology - check HIV - DVT ppx - Outpatient pulmonary follow up in next 7-14 days
--- NOTE | 2018-02-01 17:57 | CP.PCM.DIS ---
<Willis Sal - Last Filed: 02/01/18 17:45> Provider - Provider Date of Admission: 01/29/18 17:41 Attending physician: Arun Emerson MD Primary care physician: Osmany Dunlap MD Consults: Linh Arce - Reg[place] Time Spent in preparation of Discharge (in minutes): 45 Hospital Course - Lab Results Lab Results: Most Recent Lab Values WBC 12.9 10^3/ul (4.5-11.0) H 02/01/18 06:15 RBC 4.98 10^6/uL (3.5-6.1) 02/01/18 06:15 Hgb 13.6 g/dL (12.0-16.0) 02/01/18 06:15 Hct 41.6 % (36.0-48.0) 02/01/18 06:15 MCV 83.5 fl (80.0-105.0) 02/01/18 06:15 MCH 27.3 pg (25.0-35.0) 02/01/18 06:15 MCHC 32.7 g/dl (31.0-37.0) 02/01/18 06:15 RDW 16.8 % (11.5-14.5) H 02/01/18 06:15 Plt Count 179 10^3/uL (120.0-450.0) 02/01/18 06:15 MPV 11.2 fl (7.0-11.0) H 02/01/18 06:15 Gran % 87.7 % (50.0-68.0) H 02/01/18 06:15 Lymph % (Auto) 5.9 % (22.0-35.0) L 02/01/18 06:15 [place] % (Auto) 6.4 % (1.0-6.0) H 02/01/18 06:15 Eos % (Auto) 0.0 % (1.5-5.0) L 02/01/18 06:15 Baso % (Auto) 0.0 % (0.0-3.0) 02/01/18 06:15 Gran # 11.33 (1.4-6.5) H 02/01/18 06:15 Lymph # (Auto) 0.8 (1.2-3.4) L 02/01/18 06:15 [place] # (Auto) 0.8 (0.1-0.6) H 02/01/18 06:15 Eos # (Auto) 0.0 (0.0-0.7) 02/01/18 06:15 Baso # (Auto) 0.00 K/mm3 (0.0-2.0) 02/01/18 06:15 Neutrophils % (Manual) 89 % (50.0-70.0) H 01/31/18 06:00 Lymphocytes % (Manual) 6 % (22.0-35.0) L 01/31/18 06:00 Monocytes % (Manual) 5 % (1.0-6.0) 01/31/18 06:00 Sodium 141 mmol/L (132-148) 02/01/18 06:15 Potassium 4.2 mmol/L (3.6-5.0) 02/01/18 06:15 Chloride 96 mmol/L (98-107) L 02/01/18 06:15 Carbon Dioxide 33 mmol/L (21-33) 02/01/18 06:15 Anion Gap 17 (10-20) 02/01/18 06:15 BUN 29 mg/dL (7-21) H 02/01/18 06:15 Creatinine 1.2 mg/dl (0.7-1.2) 02/01/18 06:15 Est GFR ( Amer) 57 02/01/18 06:15 Est GFR (Non-Af Amer) 47 02/01/18 06:15 Random Glucose 134 mg/dL (70-110) H 02/01/18 06:15 Calcium 9.0 mg/dL (8.4-10.5) 02/01/18 06:15 Phosphorus 4.3 mg/dL (2.5-4.5) 01/30/18 06:00 Magnesium 1.8 mg/dL (1.7-2.2) 01/30/18 06:00 Total Bilirubin 2.1 mg/dL (0.2-1.3) H 02/01/18 06:15 AST 35 U/L (14-36) 02/01/18 06:15 ALT 39 U/L (7-56) 02/01/18 06:15 Alkaline Phosphatase 129 U/L (38-126) H 02/01/18 06:15 Lactate Dehydrogenase 664 U/L (333-699) 01/29/18 14:50 Total Creatine Kinase 106 U/L (35-230) 01/29/18 14:50 Troponin I < 0.01 ng/mL 01/29/18 14:50 NT-Pro-B Natriuret Pep 2340 pg/mL (0-450) H 01/29/18 14:50 Total Protein 7.8 g/dL (5.8-8.3) 02/01/18 06:15 Albumin 4.1 g/dL (3.0-4.8) 02/01/18 06:15 Globulin 3.7 gm/dL 02/01/18 06:15 Albumin/Globulin Ratio 1.1 (1.1-1.8) 02/01/18 06:15 Urine Color Dark yellow (YELLOW) 01/29/18 14:50 Urine Appearance Slight-cloudy (CLEAR) 01/29/18 14:50 Urine pH 6.5 (4.7-8.0) 01/29/18 14:50 Ur Specific [place] 1.020 (1.005-1.035) 01/29/18 14:50 Urine Protein 100 mg/dL (<30 mg/dL) H 01/29/18 14:50 Urine Glucose (UA) Negative mg/dL (NEGATIVE) 01/29/18 14:50 Urine Ketones Negative mg/dL (NEGATIVE) 01/29/18 14:50 Urine Blood Small (NEGATIVE) H 01/29/18 14:50 Urine Nitrate Negative (NEGATIVE) 01/29/18 14:50 Urine Bilirubin Negative (NEGATIVE) 01/29/18 14:50 Urine Urobilinogen 4.0 E.U./dL (<1 E.U./dL) H 01/29/18 14:50 Ur Leukocyte Esterase Trace Ulices/uL (NEGATIVE) H 01/29/18 14:50 Urine RBC 1 - 3 /hpf (0-2) 01/29/18 14:50 Urine WBC 5 - 10 /hpf (0-6) 01/29/18 14:50 Ur Epithelial Cells 3 - 4 /hpf (0-5) 01/29/18 14:50 Urine Bacteria Few (NEG) 01/29/18 14:50 - Hospital Course Hospital Course: Willis Sal DO PGY-1, Email Production Specialist Medicine Discharge Summary This is a 52 y o female with PMhx sarcoidosis who presented to the ED on c/o 3 day hx RLE edema, shortness of breath on exertion, and wheezing. CXR in ED demonstrated no acute pulmonary process. B/l LE U/S demonstrated no sonographic evidence for DVT. CT chest demonstrated no evidence of pulmonary embolism but showed worsening of mediastinal and hilar lymphadenopathy and R pleural effusion. Labs were significant for elevated bilirubin (3.3), elevated alkaline phosphatase (150), and BNP (2340). No baseline BNP to compare. Pt was thus admitted for CHF exacerbation likely 2/2 sarcoidosis and management of R pleural effusion. Pt was placed on duonebs, Solu-Medrol, lasix, and magnesium oxide. Pt's 2+ R leg edema improved significantly throughout admission, now on day of discharge only trace edema. Echo performed 01/30 showed a dilated R ventricle, severe tricuspid regurgitation, and severe pulmonary hypertension. On 01/31, pt had an elevated WBC at 13.6, likely 2/2 steroid administration. While admitted pt had period of bradycardia. EKG was suspicious for possible 3rd degree AV block. Troponins were negative on admission. Cardiology was consulted (Dr. Rodgers), who recommended continuing albuterol, IV lasix, and solu-medrol, advised no pacemaker placement at this time for a junctional rhythm. Pt was advised to follow-up for worsening chest pain, shortness of breath, or edema, on day of discharge. Pulmonology was consulted (Dr. Martínez) , who recommended 6 mos of prednisone taper and c/w lasix at discharge. Pt will follow up with PMD ([facility]) and establish care with a pulmonolgist for management of sarcoidosis/pulmonary HTN within 1 week of discharge. Pt was educated on importance of follow-up for sarcoidosis and pulmonary HTN, pt was receptive and agrees with plan. Pt was discharged on in stable condition. Discharge Exam - Head Exam Head Exam: ATRAUMATIC, NORMOCEPHALIC - Eye Exam Eye Exam: EOMI, Normal appearance, PERRL - ENT Exam ENT Exam: Mucous Membranes Moist, Normal Oropharynx - Neck Exam Neck exam: Full Rom, Normal Inspection - Respiratory Exam Respiratory Exam: Clear to PA & Lateral, NORMAL BREATHING PATTERN, UNREMARKABLE - Cardiovascular Exam Cardiovascular Exam: REGULAR RHYTHM, +S1, +S2 - GI/Abdominal Exam GI & Abdominal Exam: Normal Bowel Sounds, Soft - Extremities Exam Extremities exam: full ROM, normal capillary refill, normal inspection, pedal pulses present - Neurological Exam Neurological exam: Alert, CN II-XII Intact, Normal Gait, Oriented x3, Reflexes Normal - Psychiatric Exam Psychiatric exam: Normal Affect, Normal Mood - Skin Skin Exam: Dry, Intact, Normal Color, Warm Discharge Plan - Discharge Medications Prescriptions: Furosemide 40 mg PO DAILY #30 tablet predniSONE [predniSONE Tab] 30 mg PO DAILY 14 Days tab predniSONE [predniSONE Tab] 40 mg PO DAILY 14 Days tab - Follow Up Plan Condition: STABLE Disposition: HOME/ ROUTINE Instructions: Heart Healthy Diet, Heart Failure, Adult (DC), Low Salt Diet, Pulmonary Hypertension, Adult (DC), Steroid Medicines, Sarcoidosis (DC), Heart Failure (DC), Heart Failure (GEN), Pacemaker (DC), Pacemaker (GEN), Pulmonary Edema (DC), Pulmonary Edema (GEN), Ascites (DC), Ascites (GEN) Additional Instructions: 1. Follow up with our [facility] on the ground floor, appointment on 02/09 3:30pm. 2. Please call [facility] to make an appointment with the pulmonary clinic for follow up of pulmonary hypertension and sarcoidosis within the next week. 3. Take prednisone as ordered, 40mg daily for 2 weeks then 30mg daily for 2 weeks. 4. Maintain physical activity. 5. Avoid tobacco and other respiratory irritants. Referrals: Osmany Dunlap MD [Primary Care Provider] - <Arun Emerson - Last Filed: 02/02/18 15:01> Provider - Provider Date of Admission: 01/29/18 17:41 Attending physician: Arun Emerson MD Primary care physician: Osmany Dunlap MD Hospital Course - Lab Results Lab Results: Most Recent Lab Values WBC 12.9 10^3/ul (4.5-11.0) H 02/01/18 06:15 RBC 4.98 10^6/uL (3.5-6.1) 02/01/18 06:15 Hgb 13.6 g/dL (12.0-16.0) 02/01/18 06:15 Hct 41.6 % (36.0-48.0) 02/01/18 06:15 MCV 83.5 fl (80.0-105.0) 02/01/18 06:15 MCH 27.3 pg (25.0-35.0) 02/01/18 06:15 MCHC 32.7 g/dl (31.0-37.0) 02/01/18 06:15 RDW 16.8 % (11.5-14.5) H 02/01/18 06:15 Plt Count 179 10^3/uL (120.0-450.0) 02/01/18 06:15 MPV 11.2 fl (7.0-11.0) H 02/01/18 06:15 Gran % 87.7 % (50.0-68.0) H 02/01/18 06:15 Lymph % (Auto) 5.9 % (22.0-35.0) L 02/01/18 06:15 [place] % (Auto) 6.4 % (1.0-6.0) H 02/01/18 06:15 Eos % (Auto) 0.0 % (1.5-5.0) L 02/01/18 06:15 Baso % (Auto) 0.0 % (0.0-3.0) 02/01/18 06:15 Gran # 11.33 (1.4-6.5) H 02/01/18 06:15 Lymph # (Auto) 0.8 (1.2-3.4) L 02/01/18 06:15 [place] # (Auto) 0.8 (0.1-0.6) H 02/01/18 06:15 Eos # (Auto) 0.0 (0.0-0.7) 02/01/18 06:15 Baso # (Auto) 0.00 K/mm3 (0.0-2.0) 02/01/18 06:15 Neutrophils % (Manual) 89 % (50.0-70.0) H 01/31/18 06:00 Lymphocytes % (Manual) 6 % (22.0-35.0) L 01/31/18 06:00 Monocytes % (Manual) 5 % (1.0-6.0) 01/31/18 06:00 Sodium 141 mmol/L (132-148) 02/01/18 06:15 Potassium 4.2 mmol/L (3.6-5.0) 02/01/18 06:15 Chloride 96 mmol/L (98-107) L 02/01/18 06:15 Carbon Dioxide 33 mmol/L (21-33) 02/01/18 06:15 Anion Gap 17 (10-20) 02/01/18 06:15 BUN 29 mg/dL (7-21) H 02/01/18 06:15 Creatinine 1.2 mg/dl (0.7-1.2) 02/01/18 06:15 Est GFR ( Amer) 57 02/01/18 06:15 Est GFR (Non-Af Amer) 47 02/01/18 06:15 Random Glucose 134 mg/dL (70-110) H 02/01/18 06:15 Calcium 9.0 mg/dL (8.4-10.5) 02/01/18 06:15 Phosphorus 4.3 mg/dL (2.5-4.5) 01/30/18 06:00 Magnesium 1.8 mg/dL (1.7-2.2) 01/30/18 06:00 Total Bilirubin 2.1 mg/dL (0.2-1.3) H 02/01/18 06:15 AST 35 U/L (14-36) 02/01/18 06:15 ALT 39 U/L (7-56) 02/01/18 06:15 Alkaline Phosphatase 129 U/L (38-126) H 02/01/18 06:15 Lactate Dehydrogenase 664 U/L (333-699) 01/29/18 14:50 Total Creatine Kinase 106 U/L (35-230) 01/29/18 14:50 Troponin I < 0.01 ng/mL 01/29/18 14:50 NT-Pro-B Natriuret Pep 2340 pg/mL (0-450) H 01/29/18 14:50 Total Protein 7.8 g/dL (5.8-8.3) 02/01/18 06:15 Albumin 4.1 g/dL (3.0-4.8) 02/01/18 06:15 Globulin 3.7 gm/dL 02/01/18 06:15 Albumin/Globulin Ratio 1.1 (1.1-1.8) 02/01/18 06:15 Urine Color Dark yellow (YELLOW) 01/29/18 14:50 Urine Appearance Slight-cloudy (CLEAR) 01/29/18 14:50 Urine pH 6.5 (4.7-8.0) 01/29/18 14:50 Ur Specific [place] 1.020 (1.005-1.035) 01/29/18 14:50 Urine Protein 100 mg/dL (<30 mg/dL) H 01/29/18 14:50 Urine Glucose (UA) Negative mg/dL (NEGATIVE) 01/29/18 14:50 Urine Ketones Negative mg/dL (NEGATIVE) 01/29/18 14:50 Urine Blood Small (NEGATIVE) H 01/29/18 14:50 Urine Nitrate Negative (NEGATIVE) 01/29/18 14:50 Urine Bilirubin Negative (NEGATIVE) 01/29/18 14:50 Urine Urobilinogen 4.0 E.U./dL (<1 E.U./dL) H 01/29/18 14:50 Ur Leukocyte Esterase Trace [place]/uL (NEGATIVE) H 01/29/18 14:50 Urine RBC 1 - 3 /hpf (0-2) 01/29/18 14:50 Urine WBC 5 - 10 /hpf (0-6) 01/29/18 14:50 Ur Epithelial Cells 3 - 4 /hpf (0-5) 01/29/18 14:50 Urine Bacteria Few (NEG) 01/29/18 14:50 Attending/Attestation - Attestation I have personally seen and examined this patient.: Yes I have fully participated in the care of the patient.: Yes I have reviewed all pertinent clinical information, including history, physical exam and plan: Yes Notes (Text): 02/02/18 14:59 Medical record note made by the resident after discussion with my direction and input after the patient was personally seen and examined by me. I have reviewed the chart and agree that the record accurately reflects by personal performance of the history, physical exam, data review, and medical decision-making, in the course for the patient. I have also personally directed the plan of care. 52 yrs old female with right sided heart failure due to severe Pulmonary HTN. Dyspnea and leg swelling is improving.Lasix can be changed to oral.Pulmonary evaluation is appreciated. Patient has been started on oral prednisone as recommended by Pulmonary. Patient will need to follow with Pulmonary Hypertension clinic after discharge. EKG showed junctional rhythm.Patient is asymptomatic.There is no dizziness, lightheadedness or syncope.Patient is ambulatory at the tome of discharge.Case was discussed with . Management plan was discussed in detail with patient. Education was provided.
[2018-02-01 18:30] VITALS: PULSE 50
--- NOTE | 2018-02-01 18:39 | CARD ---
APPROVED REPORT Date of service: 02/01/2018 EKG Measurement Heart [id number] <Conclusion> Junctional rhythm, AV dissociation Rightward axis RSR' or QR pattern in V1 suggests right ventricular conduction delay T wave abnormality,nonspecific Abnormal ECG
== END 2018-02-01 18:31 | disposition home or self-care (01) | DRG 292 ==
LOC: ED 14:01 → ERH 17:41 → 2RNO 18:43
PROVIDERS: ADMIT Internal Medicine; ATTEND Internal Medicine
DX: I11.0 Hypertensive heart disease with heart failure (principal); I31.3 Pericardial effusion (noninflammatory); I50.30 Unspecified diastolic (congestive) heart failure; I50.810 Right heart failure, unspecified; I27.29 Other secondary pulmonary hypertension; D86.9 Sarcoidosis, unspecified; I44.30 Unspecified atrioventricular block; I07.1 Rheumatic tricuspid insufficiency; Z87.891 Personal history of nicotine dependence